=== PATIENT | male | born 1950 ===

== ENCOUNTER 2025-03-22 08:55 | Outpatient (REF) | payer OTHER, SELFPAY ==
[2025-03-22 13:58] LABS: MANUAL DIFF FLAG NO
[2025-03-22 14:07] LABS: Hematocrit 47.2 % (42.0-52.0); Hemoglobin 15.1 g/dl (14.0-18.0); Imm Gran Abs Auto 0.02 X10*3/uL (0.00-0.03); Imm Gran Pct Auto 0.3 % (0.0-0.4); Lymphocytes Absolute Auto 2.4 X10*3/uL (1.2-4.9); Mean Corpuscular HGB Conc 32.0 g/dl (31.0-36.0); Mean Corpuscular Hemoglobin 28.7 pg (27.0-33.0); Mean Corpuscular Volume 89.6 fL (80.0-98.0); NRBC Abs Auto 0.000 X10*3/uL (0.0-0.012); NRBC Pct Auto 0.0 /100WBC (0.0-0.2); Platelet Count 336 X10*3/uL (160-400); Red Blood Count 5.27 X10*6/uL (4.60-5.80); White Blood Count 6.7 X10*3/uL (4.8-10.8)
[2025-03-22 14:23] LABS: Protein/Creatinine Ratio, Ur 0.15 (<0.2); Total Protein Urine Random 11 mg/dL (<12)
[2025-03-22 14:54] LABS: Alanine Aminotransferase 48 U/L (0-40); Aspartate Amino Transferase 44 U/L (5-37); Estimated Glomerular Filt Rate > 60; Iron 97 mcg/dL (45-160); Percent Iron Saturation 28 % (15-50); Total Iron Binding Capacity 351 mcg/dL (228-428); Unsaturated Iron Binding 254 ug/dL
[2025-03-22 15:02] LABS: Appearance Urine Clear; Glucose Urine UA Negative (Negative); PH 6.5 (5.0-9.0); Specific Gravity - Urine 1.015 (1.005-1.025)
[2025-03-22 15:10] LABS: Thyroid Stimulating Hormone 2.26 uIU/mL (0.32-4.0)
[2025-03-22 15:17] LABS: Folate 6.7 ng/mL (> or = 4.0); Vitamin B12 714 pg/mL (200-900)
== END 2025-03-22 08:56 | disposition home or self-care (01) ==
LOC: HO.HKASLDS 08:55
PROVIDERS: Visit Provider Student in an Organized Health Care Education/Training Program
DX: R76.0 Raised antibody titer (principal); Z01.84 Encounter for antibody response examination; G89.29 Other chronic pain; M25.511 Pain in right shoulder; M25.561 Pain in right knee; M25.50 Pain in unspecified joint; M79.2 Neuralgia and neuritis, unspecified; R76.89 Other specified abnormal immunological findings in serum; Z13.29 Encounter for screening for other suspected endocrine disorder
CPT/HCPCS: 36415; 81001; 82565; 82570; 82607; 82746; 83540; 84156; 84182; 84443; 84450; 84460; 85025; 85652; 86038; 86140; 86160; 86200; 86225; 86235; 86255; 86376; 86431; 86800

== ENCOUNTER 2025-03-22 08:55 | Outpatient (AMB) | payer OTHER, SELFPAY ==
--- NOTE | 2025-03-22 09:01 | A.OFFVIS_ITS ---
Vital Signs 03/22/25 09:03 Height 5 ft 11 in Weight 263 lb 0.183 oz BMI 36.7 BP 148/80 H Blood Pressure Location Lt brachial Position Sitting Pulse 77 Pulse Source Pulse Oximeter Pulse Oximetry (%) 97 Oxygen Delivery Method Room Air Intake Visit Reasons: + JEANNETTE[facility] Intake Note: Patient is a new patient, externally referred for +JEANNETTE from Dr. De La Cruz from the [place]. Account Installation Specialist Required: No Accompanied by: Self / Same As Patient Allergies latex gloves Allergy (Unknown, Uncoded 03/22/25 09:11) Unknown HPI Comments Details: 73-year-old with a history of PTSD, depression, hypertension, restless legs syndrome and chronic sinus issues [facility] in light of a positive JEANNETTE titer. He states he has joint pain since he was 32. He was a [employer] and had injuries to the right shoulder and right knee and carried 80 pound weights. His joint pain is in his both shoulders and both knee for many years. He says imaging has been done which showed OA and DJD He has had cortisone shots in the knees and shoulders which provided some relief, however the [facility] has not given the patient injections due to insurance issues as per patient. He has been on gabapentin and is now on 2700mg of gabapentin. He has numbness and tingling which is very severe more so in the left foot , he has been seeing neurology for the chronic neuropathy. He has had NCS on the left foot and right foot , results are not available to me.I will request records from the neurologist's office at [facility] On labs he had a positive ANA1:320 homogeneous pattern. Folic acid 9.6, vi tamin-D 27.7 ESR normal HGB A1c 5.7 creatinine 1.2 GFR 64 Social history: he drinks one beer a week, but 5/6 years ago ws binge drinking ROS: no photosensitivty, no oral /nsal ulcers, bloody urine no bloody diarreaha,no uvieitis, no raynauds, I will request record from neurology , no dry eyes an no dry mouth no skin rashes. FH: no autoimmune disease PHYSICAL EXAM General: Comfortable CVS: RRR Respiratory: clear to auscultation bilaterally. Good respiratory effort Skin: No lesions seen MSK: Patient is able to make a fist bilaterally. Nontender MCPs PIPs. Patient has good range of motion the shoulders, strength 5/5. Patient has limited range of motion the hips, crepitus noted in the knees on flexion-extension. Patient has strength 5/5 in the lower extremities too. Non swollen ankles. [facility] Medical History (Updated 03/22/25 @ 10:18 by Lauren Ulloa MD) Tinnitus, bilateral Sleep apnea Senile nuclear cataract RLS (restless legs syndrome) PTSD (post-traumatic stress disorder) Polyp of colon Pain in unspecified foot Obsessive compulsive disorder Obesity Menieres disease Major depressive disorder Jaw pain Hyperglycemia Essential hypertension Epidemic vertigo Contact with and (suspected) exposure to other hazardous substances Cervicalgia Cardiac murmur, unspecified Bursitis of left shoulder Bilateral primary osteoarthritis of knee Benign prostatic hyperplasia with elevated prostate specific antigen (PSA) and lower urinary tract symptoms Anxiety Allergic rhinitis Surgical History (Updated 03/22/25 @ 09:20 by Michelle Dean CMA) H/O right knee surgery History of nasal surgery Social History Alcohol intake: current Alcohol intake frequency: holidays/special occasions only Patient Tobacco Use Status: Current someday Tobacco user Tobacco use type: Cigarette Substance Use Type: Other Physical Exam Vital Signs: BMI result Body Mass Index 36.7 Assessment & Plan Assessment & Plan (1) Polyarthralgia: Code(s): M25.50 - Pain in unspecified joint Category: Medical (2) Peripheral neuropathic pain: Code(s): M79.2 - Neuralgia and neuritis, unspecified Category: Medical (3) Positive antinuclear antibody: Code(s): R76.89 - Other specified abnormal immunological findings in serum Category: Medical (4) Polyarthralgia: Code(s): M25.50 - Pain in unspecified joint Category: Medical (5) Right shoulder pain: Code(s): M25.511 - Pain in right shoulder Category: Medical Qualifiers: Chronicity: chronic Qualified Code(s): M25.511 - Pain in right shoulder; G89.29 - Other chronic pain (6) Right knee pain: Code(s): M25.561 - Pain in right knee Category: Medical Qualifiers: Chronicity: chronic Qualified Code(s): M25.561 - Pain in right knee; G89.29 - Other chronic pain Plan 73-year-old with a history of PTSD, depression, hypertension, restless legs syndrome and chronic sinus issues [facility] in light of a positive JEANNETTE titer. He also has chronic neuropathy particularly centered in the left foot. He is currently seeing Neurology for chronic neuropathy who was managing this condition. I will request records from them. JEANNETTE titer 1:320 homogeneous pattern He has joint pain in the right knee and right shoulder which he attributes to wear and tear and damage from his days. I will order x-rays of the shoulders bilaterally and knees bilaterally to assess the amount of wear and tear. Based on his history, physical exam he does not meet any criteria for connective tissue diseases like SLE, rheumatoid arthritis, psoriatic arthritis, scleroderma or Sjogren's. I will complete workup including JEANNETTE, JEANNETTE subsets, complements, ESR, CRP, urine studies. Joint pain in the right shoulder and right knee is likely attributed to previous trauma and osteoarthritis/DJD. I will also check for vitamin B12, folic acid and iron profile and his current chronic neuropathy and restless leg syndrome Patient is interested in physical therapy for his right shoulder and right knee, I will place these referrals. I will follow up with him in 3 weeks to discuss the results of his blood work and imaging and for further management Orders: Orders XR Knee Jose Luis 1or 2V Today M25.50 - Pain in unspecified joint XR Shoulder Jose Luis min 2V Today M25.50 - Pain in unspecified joint Complete Blood Count Auto Diff Today R76.0 - Raised antibody titer Aspartate Amino Transferase Today R76.0 - Raised antibody titer Creatinine Today R76.0 - Raised antibody titer Complement C4 Today R76.0 - Raised antibody titer Anti DNA DS Antibody Today R76.0 - Raised antibody titer Sjogren's Antibodies Today R76.0 - Raised antibody titer Scleroderma 12 Panel Today R76.0 - Raised antibody titer Cyclic Citrullinated Peptide Today R76.0 - Raised antibody titer Anti-Centromere B Antibodies Today R76.0 - Raised antibody titer Thyroid Stimulating Hormone Today R76.0 - Raised antibody titer Thyroglobulin Antibodies Today R76.0 - Raised antibody titer Thyroid Peroxidase Antibodies Today R76.0 - Raised antibody titer Vitamin B12 and Folate Today M79.2 - Neuralgia and neuritis, unspecified, R76.89 - Other specified abnormal immunological findings in serum IRON PROFILE Today M25.50 - Pain in unspecified joint PT Evaluation and Treatment Today M25.511 - Pain in right shoulder PT Evaluation and Treatment Today M25.561 - Pain in right knee Alanine Aminotransferase Today R76.0 - Raised antibody titer C Reactive Protein Today R76.0 - Raised antibody titer Erythrocyte Sedimentation Rate Today R76.0 - Raised antibody titer Complement C3 Today R76.0 - Raised antibody titer JEANNETTE Reflex Titer and Pattern Today R76.0 - Raised antibody titer Protein Creatinine Ratio, Ur Today R76.0 - Raised antibody titer UA ClnCatch+Micro w/rflx Cult Today R76.0 - Raised antibody titer DNA Double Stranded-Crithidia Today R76.0 - Raised antibody titer Sm Sm/HAND PACKER/PACKAGER Antibodies Today R76.0 - Raised antibody titer Scleroderma 70 Antibody Today R76.0 - Raised antibody titer Rheumatoid Factor Today R76.0 - Raised antibody titer Coding Level of Care Code New Pt Level 4 (92431) Diagnoses Polyarthralgia M25.50 Peripheral neuropathic pain M79.2 Positive antinuclear antibody R76.89 Chronic right shoulder pain M25.511; G89.29 Chronicity: chronic Chronic pain of right knee M25.561; G89.29 Chronicity: chronic
--- OUTSIDE RECORDS SUMMARY | 2025-03-22 09:02 | XMS_ITS | Encounter Summary ---
Author Organization [facility] Address [address] [place] [address] Phone Care Team Providers Care Insect Control Aide Name Role Phone Melecio Hough MD Primary Care Provider [phone] Encounter Details Date Type Department Care Team ([facility] st Contact Info) Description 02/22/[address] [facility] [address] [place] [id number] Vincenzo Carlos DO [address] [place] [address] Orthopedics & Sports Medicine, [facility] [place] [address] [email or web address] Social History Tobacco Use Types Packs/Day Years Used Date Smoking Tobacco: Former Cigarettes Q uit: 01/26/2004 Smokeless Tobacco: Never Alcohol Use Standard Drinks/Week Comments Yes 1 (1 standard drink = 0.6 oz pur e alcohol) very infrequently Sex and Gender Information Value Date Recorded Sex Assigned at Not on file Legal Sex Male 9:50 AM EDT Gender Identity Not on file Sexual Orientation Not on file documented as of this encounter Plan of Treatment Not on file documented as of this encounter Visit Diagnoses Not on filedocumented in this encounter Care Teams Insect Control Aide Relationship Specialty Start Date End Date Melecio Hough MD [address] [place] [address] PCP - General Internal Medicine 12/17/18 documented as of this encounter Additional Source Comments The information contained in this document represents components of the legal health record. It is not the complete legal health record.[facility]
--- OUTSIDE RECORDS SUMMARY | 2025-03-22 09:02 | XMS_ITS | Encounter Summary ---
Author Organization [facility] Address [address] [place] [address] Phone Care Team Providers Care Supervisor Quality Control Name Role Phone Melecio Hough MD Primary Care Provider [phone] Encounter Details Date Type Department Care Team (Late st Contact Info) Description 02/22/2019 Ancillary Orders [address] [address] Vincenzo Carlos DO [address] [place] [address] Orthopedics & Sports Medicine, [place] [address] [email or web address] Right shoulder pain, unspecified chronicity Social History Tobacco Use Types Packs/Day Years [...] as of this encounter Plan of Treatment Pending Results Name Type Priority Associated Diagnoses Date /Time FL Guidance Needle Placement Non-Spine Imaging Routine Right shoulder pain, unspecified chronicity 02/23/2019 8:31 AM EST Scheduled Orders Name Type Priority Associated Diagnoses Orde r Schedule FL Guidance Needle Placement Non-Spine Imaging Routine Right shoulder pain, unspecified chronicity 1 Occurrences starting 02/22/2019 until 05/24/2019 documented as of this encounter Visit Diagnoses Diagnosis Right shoulder pain, unspecified chronicity documented in this encounter Care Teams Supervisor Quality Control Relationship Specialty Start Date End Date Melecio Hough MD [address] [place] [address] PCP - General Internal Medicine 12/17/18 documented as of this encounter Additional Source Comments The information contained in this document represents components of the legal health record. It is not the complete legal health record.[facility]
--- OUTSIDE RECORDS SUMMARY | 2025-03-22 09:02 | XMS_ITS | Clinical Summary ---
Author Organization [facility] Address [address] [place] [phone] Phone Care Team Providers Care Retirement Actuary Name Role Phone Melecio Hough MD Primary Care Provider Allergies No known active allergies Medications aspirin 81 MG EC tablet Take 81 mg by mouth daily. Active lisinopril (PRINIVIL,ZESTRI L) 5 MG tablet Take 5 mg by mouth daily. Active cetirizine (ZYRTEC) 10 MG tablet Take 10 mg by mouth daily. Active Active Problems Problem Noted Date Diagnosed Date Right shoulder pain 01/17/2019 Encounters Date Type Department Care Team Description 02/07/2025 Telephone [facility] G[facility] [address] [place] [phone] Melecio Hough MD Direct Colonoscopy 02/07/2025 Transcribe Orders [facility] [address] [place] [phone] Melecio Gonzalez NP Encounter for screening for malignant neoplasm of colon (Primary Dx) from Last 3 Months Social History Tobacco Use Types Packs/Day Years Used Date Smoking Tobacco: Former Cigarettes Q uit: 01/26/2004 Smokeless Tobacco: Never Alcohol Use Standard Drinks/Week Comments Yes 1 (1 standard drink = 0.6 oz pur e alcohol) very infrequently Education Answer Date Recorded Are you interested in more education? Not on [place] e 07/18/2022 Are you concerned about learning? Not on file 07/18/2022 No 07/18/2022 No 07/18/2022 Digital Access Answer Date Recorded No 08/19/2022 No 08/19/2022 No 08/19/2022 Reliable internet access at home? Not on file 08/19/2022 Device with a working camera? Not on file Sex and Gender Information Value Date Recorded Sex Assigned at Not on file Legal Sex Male 9:50 AM EDT Gender Identity Not on file Sexual Orientation Not on file Last Filed Vital Signs Vital Sign Reading Time Taken Comments Blood Pressure 178/96 01/25/2019 9:27 AM EST Pulse 84 01/25/2019 9:27 AM EST Temperature - - Respiratory Rate - - Oxygen Saturation - - Inhaled Oxygen Concentration - - Weight 114.8 kg (253 lb) 01/25/2019 9:27 AM EST Height 174.8 cm (5' 8.8 ) 01/25/2019 9:27 AM EST Body Mass Index 37.58 01/25/2019 9:27 AM EST Plan of Treatment Health Maintenance Due Date Last Done Comments Adult Td,Tdap Booster 1952 CREATININE LEVEL 1952 LIPID PANEL 1952 POTASSIUM LEVEL 1952 DEPRESSION SCREENING 1964 SMOKING Hx and SMOKELESS TOB ACCO SCREENING 1965 HEPATITIS C SCREENING 1970 COLOGUARD 1997 COLONOSCOPY 1997 COLORECTAL CANCER SCREENING 1997 FIT TEST 1997 FOBT 1997 SIGMOIDOSCOPY 1997 VIRTUAL COLONOSCOPY 1997 PNEUMOCOCCAL VACCINES (50+ y ears) (1 of 1 - PCV) 2002 ZOSTER VACCINES (1 of 2) 2002 ABDOMINAL AORTIC ANEURYSM (A AA) SCREENING 2017 INFLUENZA VACCINE (#1) 2024 COVID-19 VACCINE ( - 2024-2 6 season) 2024 RSV VACCINE (1 - 1-dose 75+ series) 11/16/2027 HEPATITIS A VACCINES Aged Out No long er eligible based on patient's age to complete this topic HIB VACCINES Aged Out No longer eligi ble based on patient's age to complete this topic MENINGOCOCCAL VACCINES (ACWY) Aged Out No longer eligible based on patient's age to complete this topic MENINGOCOCCAL VACCINES (B) Aged Out N o longer eligible based on patient's age to complete this topic Medical [place] [address] , [place] [address] , [place] [address] Care Teams Retirement Actuary Relationship Specialty Start Date End Date Melecio Hough MD [address] [place] [address] PCP - General Internal Medicine 12/17/18 Additional Source Comments The information contained in this document represents components of the legal health record. It is not the complete legal health record.[facility]
[2025-03-22 09:03] VITALS: BP 148/80; PULSE 77; O2SAT 97; BMI 36.7
== END 2025-03-22 10:00 | disposition home or self-care (01) ==
PROVIDERS: Referring Provider Student in an Organized Health Care Education/Training Program; Visit Provider Student in an Organized Health Care Education/Training Program
DX: M25.50 Pain in unspecified joint (principal); M79.2 Neuralgia and neuritis, unspecified; R76.89 Other specified abnormal immunological findings in serum; M25.511 Pain in right shoulder; G89.29 Other chronic pain; M25.561 Pain in right knee
CPT/HCPCS: 99204